=== PATIENT | female | born 1965 | race African-American/Black ===

== ENCOUNTER 2024-10-05 16:20 | Emergency (ER) | payer SELFPAY ==
[2024-10-05] MEDS ORDERED: Metoprolol Tartrate 50 MG Tab PO STA (16:30)
[2024-10-05] MEDS ORDERED: Metoprolol Tartrate 25 MG Tab PO STA (16:34)
[2024-10-05] MEDS ORDERED: Clopidogrel 75 MG Tab PO ONE (16:41)
[2024-10-05] MEDS ORDERED: Heparin Sodium 5,000 Units/ML Vial IVPUSH ONE (16:41)
[2024-10-05 16:45] LABS: EOSINOPHILS ABSOLUTE AUTO 0.2 x10^3/uL (0.0-0.5); EOSINOPHILS PERCENT AUTO 2.7 % (0.0-4.0); HEMATOCRIT 39.2 % (33.0-47.0); HEMOGLOBIN 12.5 g/dL (12.0-16.0); IMMATURE GRAN ABSOLUTE AUTO 0.02 x10^3/uL (0.00-0.07); LYMPHOCYTES ABSOLUTE AUTO 1.8 x10^3/uL (1.0-4.8); LYMPHOCYTES PERCENT AUTO 21.8 % (25.0-50.0); MEAN CORPUSCULAR HGB CONC 31.9 g/dL (32.0-36.0); MEAN CORPUSCULAR VOLUME 87.7 fL (78.0-93.0); MONOCYTES ABSOLUTE AUTO 0.3 x10^3/uL (0.0-0.8); NEUTROPHILS PERCENT AUTO 71.3 % (50.0-80.0); PLATELET COUNT,PLT 249 x10^3/uL (130-400); RED BLOOD CELL COUNT 4.47 x10^6/uL (4.00-5.50); WHITE BLOOD CELL COUNT,WBC 8.5 x10^3/uL (4.0-10.0)
[2024-10-05] MEDS ORDERED: Heparin Sodium/0.45% NaCl 25,000 UNITS/250 ML BAG IV SCH (16:45)
[2024-10-05] MEDS ORDERED: Morphine 2 MG/ML SYRINGE IVPUSH ONE (16:49)
[2024-10-05 16:59] LABS: PROTHROMBIN TIME 10.6 SEC (9.6-12.0)
[2024-10-05] MEDS ORDERED: Tenecteplase 50 MG Kit IV ONE (17:01)
[2024-10-05 17:24] LABS: A/G RATIO 0.92; ALANINE AMINOTRANSFERASE,ALT 23 U/L (14-59); ALBUMIN 3.5 g/dL (3.4-5.0); ALKALINE PHOSPHATASE 91 U/L (46-116); ASPARTATE AMNIOTRANSFERASE,AST 14 U/L (15-37); BILIRUBIN TOTAL 0.2 mg/dL (0.2-1.0); BLOOD UREA NITROGEN,BUN 16 mg/dL (7-18); CARBON DIOXIDE,CO2 26 mmol/L (21-32); CHLORIDE,CL 103 mmol/L (98-107); CREATININE 0.7 mg/dL (0.55-1.02); GLUCOSE RANDOM 221 mg/dL (70-99); LIPASE 49 U/L (19-71); MAGNESIUM 1.8 mg/dL (1.8-2.4); POTASSIUM,K 3.6 mmol/L (3.5-5.1); PRO B-TYPE NATRIUR PEPT,BNPPRO 195 pg/mL (<=125); PROTEIN TOTAL,TP 7.3 g/dL (6.4-8.2); SODIUM,NA 141 mmol/L (136-145)
[2024-10-05 17:25] LABS: ANION GAP 15.6 mmol/L (5-15); ESTIMATED GFR 99 mL/min (>=60)
== END 2024-10-05 17:15 | disposition short-term general hospital (02) ==
LOC: VM.ED 16:20
DX: I21.3 ST elevation (STEMI) myocardial infarction of unspecified site (principal)
CPT/HCPCS: 36415; 71045; 80053; 83690; 83735; 83880; 84484; 85025; 85610; 85730; 92977; 93010; 96374; 96375; 99284; 99285-25; A9270-GY; J1644; J2270; J3101